=== PATIENT | male | born 1940 | race Caucasian/White ===

== ENCOUNTER 2019-03-04 08:31 | Outpatient (CLI) | payer OTHER | END 2019-03-04 08:40 | disposition home or self-care (01) | LOC: LAB 08:31 | DX: D64.89 Other specified anemias (principal); E88.89 Other specified metabolic disorders; D68.8 Other specified coagulation defects; N39.0 Urinary tract infection, site not specified; Z22.322 Carrier or suspected carrier of Methicillin resistant Staphylococcus aureus; Z76.89 Persons encountering health services in other specified circumstances; I49.8 Other specified cardiac arrhythmias ==

== ENCOUNTER 2019-03-06 14:12 | Inpatient (IN) | payer OTHER ==
[~2019-03-06] VITALS: Ht 165.1 cm; Wt 81.6 kg
[2019-03-11] MEDS ORDERED: LOSARTAN-HCTZ1 EAC2 PO (09:12)
[2019-03-11] MEDS ORDERED: ZOCOR40 MG PO (09:13)
[2019-03-11] MEDS ORDERED: ACID REDUCER20 M1 PO (09:13)
[2019-03-11] MEDS ORDERED: ALLERGY RELIE15.8 ML NASAL (09:14)
[2019-03-11] MEDS ORDERED: TRAVATAN (09:15)
[2019-03-11] MEDS ORDERED: CAMBIA50 MG PO (09:15)
[2019-03-11] MEDS ORDERED: GAVISCON 80-141 EACH PO (09:16)
[2019-03-11] MEDS ORDERED: BETIMOL5 M1 OP (09:16)
[2019-03-11] MEDS ORDERED: CVS DAILY MULT1 EAC2 PO (09:17)
[2019-03-18] MEDS ORDERED: TRAVATAN Z5 ML OP (08:09)
== END 2019-03-20 12:53 | disposition home or self-care (01) | DRG 468 ==
LOC: SURG 03-18 04:30 → O/R 03-18 04:30 → SURH 03-18 07:00 → EDSTATUS 03-18 08:15 → SURG 03-18 08:15 → SURH 03-18 08:15 → SURG 03-18 13:27
PROVIDERS: ADMIT Orthopaedic Surgery
PROC: 0SPE0JZ Removal of Synthetic Substitute from Left Hip Joint, Acetabular Surface, Open Approach (ICD-10-PCS; 2019-03-18)
PROC: 0SRE0JZ Replacement of Left Hip Joint, Acetabular Surface with Synthetic Substitute, Open Approach (ICD-10-PCS; principal; 2019-03-18 07:00)
DX: T84.89XA Other specified complication of internal orthopedic prosthetic devices, implants and grafts, initial encounter (principal); I10 Essential (primary) hypertension; I08.3 Combined rheumatic disorders of mitral, aortic and tricuspid valves; Z85.46 Personal history of malignant neoplasm of prostate

== ENCOUNTER 2023-05-09 13:51 | Outpatient (CLI) | payer OTHER ==
[~2023-05-09 13:51] MED LIST: ACID REDUCER20 M1 PO; ALLERGY RELIE15.8 ML NASAL; BETIMOL5 M1 OP; CAMBIA50 MG PO; CVS DAILY MULT1 EAC2 PO; GAVISCON 80-141 EACH PO; LOSARTAN-HCTZ1 EAC2 PO; TRAVATAN; TRAVATAN Z5 ML OP; ZOCOR40 MG PO
== END 2023-05-09 14:02 | disposition home or self-care (01) ==
LOC: MRI 13:51
PROVIDERS: ATTEND Orthopaedic Surgery
DX: M54.50 Low back pain, unspecified (principal); M79.652 Pain in left thigh

== ENCOUNTER → 2024-04-17 08:53 | Outpatient (CLI) | payer OTHER | END | disposition home or self-care (01) | LOC: LAB 08:53 | PROVIDERS: ATTEND Orthopaedic Surgery | DX: E55.9 Vitamin D deficiency, unspecified (principal); M85.9 Disorder of bone density and structure, unspecified; E56.1 Deficiency of vitamin K ==

== ENCOUNTER 2024-04-17 09:19 | Outpatient (CLI) | payer OTHER | END 2024-04-17 09:24 | disposition home or self-care (01) | LOC: RAD 09:19 | PROVIDERS: ATTEND Orthopaedic Surgery | DX: M16.32 Unilateral osteoarthritis resulting from hip dysplasia, left hip (principal) ==

== ENCOUNTER 2024-04-26 08:17 | Outpatient (CLI) | payer OTHER | END 2024-04-26 08:23 | disposition home or self-care (01) | LOC: NUCLEAR 08:17 | PROVIDERS: ATTEND Orthopaedic Surgery | DX: M81.0 Age-related osteoporosis without current pathological fracture (principal) ==